=== PATIENT | female | born 1995 | race American Indian/Alaskan Native ===

== ENCOUNTER 2021-04-11 06:15 | Emergency (ER) | payer SELFPAY ==
[2021-04-11 06:47] VITALS: BP 123/77
[2021-04-11 07:45] LABS: Basophils # (Auto) 0.1 K/mm3 (0.0-0.1); Basophils % (Auto) 0.5 % (0.0-1.8); Eosinophils # (Auto) 0.1 K/mm3 (0.0-0.4); Eosinophils % (Auto) 0.8 % (0.0-4.3); Hematocrit 39.5 % (30.3-42.9); Hemoglobin 13.5 gm/dl (10.1-14.3); Lymphocytes # (Auto) 3.6 K/mm3 (1.2-5.4); Lymphocytes % (Auto) 25.5 % (13.4-35.0); Mean Corpuscular HGB Conc 34 % (30-34); Mean Corpuscular Volume 91 fl (79-97); Monocytes # (Auto) 1.1 K/mm3 (0.0-0.8); Monocytes % (Auto) 7.7 % (0.0-7.3); Platelet Count 195 K/mm3 (140-440); Red Blood Count 4.37 M/mm3 (3.65-5.03); Red Cell Distribution Width 13.4 % (13.2-15.2)
[2021-04-11 08:25] LABS: Alanine Aminotransferase 23 units/L (7-56); Albumin 4.2 g/dL (3.9-5); Blood Urea Nitrogen 9 mg/dL (7-17); Calcium 9.7 mg/dL (8.4-10.2); Hemolysis Index 3
[2021-04-11 08:28] LABS: BUN/Creatinine Ratio 15
--- NOTE | 2021-04-11 09:15 | Event Note ---
ED Screening Note Date of service: 04/11/21 Time: 09:13 ED Screening Note: The patient was evaluated in the emergency department for symptoms described in the history of present illness. He/she was evaluated in the context of the global COVID-19 pandemic, which necessitated consideration that the patient might be at risk for infection with the virus that causes COVID-19. Institutional protocols and algorithms that pertain to the evaluation of patients at risk for COVID-19 are in a state of rapid change based on information released by regulatory bodies including the CDC and federal and state organizations. These policies and algorithms were followed during the patient's care in the emergency department. Please note that these policies, procedures and recommendations changed on a rapid basis. 26-year-old -[place] female presents to the emergency room concern for a possible miscarriage. Patient states that she is about 2 months with her last menstrual period of 02/09/2021. Patient states that this morning she woke up and started having abdominal cramping in vaginal bleeding. Patient is 2 para 0 with a history of 1 miscarriage. She denies any past medical history currently takes no medications on a daily basis and denies any trauma. Patient reports that she is followed by [facility] [employer] [facility] Dr. Blanca for it. This initial assessment/diagnostic orders/clinical plan/treatment(s) is/are subject to change based on patients health status, clinical progression and re- assessment by fellow clinical providers in the ED. Further treatment and workup at subsequent clinical providers discretion. Patient/guardian urged not to elope from the ED as their condition may be serious if not clinically assessed and managed. Initial orders include: CBC CMP hCG urinalysis ultrasound with transvaginal has been ordered
[2021-04-11 10:30] LABS: Bilirubin,Urine NEG (Negative); Blood,Urine MOD (Negative); Color,Urine Red (Yellow); Mucus,Urine FEW /HPF; Urobilinogen,Urine < 2.0 mg/dL (<2.0)
--- NOTE | 2021-04-11 10:33 | Ultrasound Report ---
FIRSTTRIMESTER OBSTETRIC ULTRASOUND ULTRASOUND OB TRANSVAGINAL HISTORY: Vaginal bleeding and cramping during . Patient states she passed a couple of clots this morning. COMPARISON: None. TECHNIQUE: Routine transabdominal and transvaginal OB ultrasound performed. FINDINGS: Uterus: Mildly enlarged measuring 10.4 x 5.8 x 7.1 cm. Gestational Sac: Well-defined oval shape and intrauterine in location. Yolk Sac: Normal in appearance. Fetus/Embryo: [place]-rump length of 0.67 cm, corresponding to an estimated gestational age of 6 weeks 4 days. Embryonic/ anatomy is too small for evaluation. Embryonic/ cardiac activity: No heart rate could be detected at this time. Placenta: Too small for evaluation. Amniotic fluid volume: Subjectively appropriate for gestational age. Ovaries: The right ovary is normal in size and appearance with normal blood flow, measuring 4.9 x 2. 3 x 3.3 cm. The left ovary is normal in size and appearance with normal blood flow, measuring 3.8 x 2.6 x 2.6 cm. Additional findings: A small subchorionic hemorrhage is suspected along the inferior border of the ge stational sac measuring 1.8 x 0.5 x 1.7 cm IMPRESSION An intrauterine gestational sac containing a small pole and yolk sac is identified. No convinci ng heart rate could be recorded. [place]-rump length measurements correlate with a 6 week 4 day p regnancy. This is concerning for demise. Close interval follow-up is recommended. Small subchorionic hemorrhage. Signer Name: Moises Kiser Jr, MD Signed: 04/11/2021 10:29 AM Workstation Name: [id number]
--- NOTE | 2021-04-11 11:51 | Emergency Department Report ---
ED HPI - General Chief complaint: Vaginal Bleeding Stated complaint: POSSIBLE MISCARRIAGE Time Seen by Provider: 04/11/21 09:07 Source: patient Mode of arrival: Ambulatory Limitations: No Limitations - History of Present Illness Initial comments: The patient was evaluated in the emergency department for symptoms described in the history of present illness. He/she was evaluated in the context of the global COVID-19 pandemic, which necessitated consideration that the patient might be at risk for infection with the virus that causes COVID-19. Institutional protocols and algorithms that pertain to the evaluation of patients at risk for COVID-19 are in a state of rapid change based on information released by regulatory bodies including the CDC and federal and state organizations. These policies and algorithms [facility]. Please note that these policies, procedures and recommendations changed on a rapid basis. 26-year-old -[place] female presents to the emergency room concern for a possible miscarriage. Patient states that she is about 2 months with her last menstrual period of 02/09/2021. Patient states that this morning she woke up and started having abdominal cramping in vaginal bleeding. Patient is 2 para 0 with a history of 1 miscarriage. She denies any past medical history currently takes no medications on a daily basis and denies any trauma. Patient reports that she is followed by [employer] Dr. Blanca for it. - Related Data Previous Rx's Medication Instructions Recorded Last Taken Type Nitrofurantoin [place]/M-Cryst 100 mg PO Q12HR 7 Days #14 capsule 04/11/21 Unknown Rx [Macrobid CAP] Allergies Allergy/AdvReac Type Severity Reaction Status Date / Time No Known Allergies Allergy Unverified 04/11/21 06:47 ED Review of Systems ROS: Stated complaint: POSSIBLE MISCARRIAGE Other details as noted in HPI ED Past Medical Hx - Past Medical History Previous Medical History?: No - Surgical History Past Surgical History?: Yes Additional Surgical History: D&C. Right Eye - Social History Smoking Status: Never Smoker Substance Use Type: None - Medications Home Medications: Home Medications Medication Instructions Recorded Confirmed Last Taken Type Nitrofurantoin [place]/M-Cryst 100 mg PO Q12HR 7 Days #14 capsule 04/11/21 Unknown Rx [Macrobid CAP] ED Physical Exam - General Limitations: No Limitations General appearance: alert, in no apparent distress - Head Head exam: Present: atraumatic, normocephalic - Eye Eye exam: Present: normal appearance - ENT ENT exam: Present: mucous membranes moist - Neck Neck exam: Present: normal inspection - Respiratory Respiratory exam: Present: normal lung sounds bilaterally. Absent: respiratory distress - Cardiovascular Cardiovascular Exam: Present: regular rate, normal rhythm. Absent: systolic murmur, diastolic murmur, rubs, gallop - GI/Abdominal GI/Abdominal exam: Present: soft, normal bowel sounds - Extremities Exam Extremities exam: Present: normal inspection - Back Exam Back exam: Present: normal inspection - Neurological Exam Neurological exam: Present: alert, oriented X3 - Psychiatric Psychiatric exam: Present: normal affect, normal mood - Skin Skin exam: Present: warm, dry, intact, normal color. Absent: rash ED Course Vital Signs 04/11/21 06:41 Temperature 98.2 F Pulse Rate 93 H Respiratory 20 Rate Blood Pressure 123/77 O2 Sat by Pulse 100 Oximetry ED Medical Decision Making - Lab Data Result diagrams: 04/11/21 06:55 04/11/21 07:44 Laboratory Results - last 24 hr 04/11/21 04/11/21 04/11/21 06:55 06:55 06:55 WBC 14.1 H RBC 4.37 Hgb 13.5 Hct 39.5 MCV 91 MCH 31 MCHC 34 RDW 13.4 Plt Count 195 Lymph % (Auto) 25.5 [place] % (Auto) 7.7 H Eos % (Auto) 0.8 Baso % (Auto) 0.5 Lymph # (Auto) 3.6 [place] # (Auto) 1.1 H Eos # (Auto) 0.1 Baso # (Auto) 0.1 Seg Neutrophils % 65.5 Seg Neutrophils # 9.2 H Sodium Potassium Chloride Carbon Dioxide Anion Gap BUN Creatinine Estimated GFR BUN/Creatinine Ratio Glucose Calcium Total Bilirubin AST ALT Alkaline Phosphatase Total Protein Albumin Albumin/Globulin Ratio HCG, Quant 07112 H Urine Bilirubin Blood Type O POSITIVE 04/11/21 04/11/21 07:44 10:15 WBC RBC Hgb Hct MCV MCH MCHC RDW Plt Count Lymph % (Auto) [place] % (Auto) Eos % (Auto) Baso % (Auto) Lymph # (Auto) [place] # (Auto) Eos # (Auto) Baso # (Auto) Seg Neutrophils % Seg Neutrophils # Sodium 139 Potassium 4.1 Chloride 105.6 Carbon Dioxide 23 Anion Gap 15 BUN 9 Creatinine 0.6 Estimated GFR > 60 BUN/Creatinine Ratio 15 Glucose 83 Calcium 9.7 Total Bilirubin 0.40 AST 17 ALT 23 Alkaline Phosphatase 48 Total Protein 7.5 Albumin 4.2 Albumin/Globulin Ratio 1.3 HCG, Quant Urine Bilirubin Neg Blood Type - Radiology Data Radiology results: report reviewed Study Comments [facility] [address] [place] [address] Ultrasound Report Signed Patient: CARLOTTA LAINEZ MR#: [id number] 93 : 1995 Acct:[id number] Age/Sex: 26 / F ADM Date: 04/11/21 Loc: ED Attending Dr: Ordering Physician: KAMALJIT KENNEDY Date of Service: 04/11/21 Procedure(s): US OB <= 14 weeks fetus Accession Number(s): [id number] cc: KAMALJIT KENNEDY FIRSTTRIMESTER OBSTETRIC ULTRASOUND ULTRASOUND OB TRANSVAGINAL HISTORY: Vaginal bleeding and cramping during . Patient states she passed a couple of clots this morning. COMPARISON: None. TECHNIQUE: Routine transabdominal and transvaginal OB ultrasound performed. FINDINGS: Uterus: Mildly enlarged measuring 10.4 x 5.8 x 7.1 cm. Gestational Sac: Well-defined oval shape and intrauterine in location. Yolk Sac: Normal in appearance. Fetus/Embryo: [place]-rump length of 0.67 cm, corresponding to an estimated gestational age of 6 weeks 4 days. Embryonic/ anatomy is too small for evaluation. Embryonic/ cardiac activity: No heart rate could be detected at this time. Placenta: Too small for evaluation. Amniotic fluid volume: Subjectively appropriate for gestational age. Ovaries: The right ovary is normal in size and appearance with normal blood flow, measuring 4.9 x 2.3 x 3.3 cm. The left ovary is normal in size and appearance with normal blood flow, measuring 3.8 x 2.6 x 2.6 cm. Additional findings: A small subchorionic hemorrhage is suspected along the inferior border of the gestational sac measuring 1.8 x 0.5 x 1.7 cm IMPRESSION An intrauterine gestational sac containing a small pole and yolk sac is identified. No convincing heart rate could be recorded. [place]-rump length measurements correlate with a 6 week 4 day . This is concerning for demise. Close interval follow-up is recommended. Small subchorionic hemorrhage. Signer Name: Moises Kiser Jr, MD Signed: 04/11/2021 10:29 AM Workstation Name: [id number] Transcribed By: ROHAN Dictated By: MOISES KISER JR, MD Electronically Authenticated By: MOISES KISER JR, MD Signed Date/Time: 04/11/21 1029 DD/ 1023 TD/TT: - Medical Decision Making 26-year-old -[place] female presents to the emergency room concern for a possible miscarriage. Patient states that she is about 2 months with her last menstrual period of 02/09/2021. Patient states that this morning she woke up and started having abdominal cramping in vaginal bleeding. Patient is 2 para 0 with a history of 1 miscarriage. She denies any past medical history currently takes no medications on a daily basis and denies any trauma. Patient reports that she is followed by [employer] Dr. Blanca [place] it. hCG 80923 Stable H&H Urinalysis pending Ultrasound; An intrauterine gestational sac containing a small pole and yolk sac is identified. No convincing heart rate could be recorded. [place]-rump length measurements correlate with a 6 week 4 day . This is concerning for demise. Close interval follow-up is recommended. Small subchorionic hemorrhage. Recommend patient to have serial hCGs and a repeat ultrasound in 72 hours. Patient needs to follow-up with her primary [employer]IAN which is Dr. Evangelist Alfaro. - Differential Diagnosis Threatened miscarriage, demise, subchorionic hemorrhage Critical Care Time: Yes (35) Critical care attestation.: If time is entered above; I have spent that time in minutes in the direct care of this critically ill patient, excluding procedure time. ED Disposition Clinical Impression: Threatened miscarriage in early , UTI (urinary tract infection) during Disposition: 01 HOME / SELF CARE / HOMELESS Is pt being admited?: No Does the pt Need Aspirin: No Condition: Stable Instructions: Threatened Miscarriage Additional Instructions: Ultrasound shows you have a intrauterine gestation. Concern for possible demise. Recommend to have a repeat hCG in 72 hours that can be done at your [facility] [facility] as well as having an ultrasound. As we spoke this will determine if the is viable. At this time we do not see cardiac activity. This may be too early in the . That is why we are recommending a repeat ultrasound in 72 hours. Tylenol is the only pain medication you can take at this time. Prescriptions: Nitrofurantoin [place]/M-Cryst [Macrobid CAP] 100 mg PO Q12HR 7 Days #14 capsule Referrals: PRIMARY CARE, [Primary Care Provider] - 3-5 Days Evangelist Alfaro [Other] - 3-5 Days Forms: Work/School Release Form(ED) Time of Disposition: 12:14
[2021-04-11 12:09] LABS: RBC,Urine > 182.0 /HPF (0.0-6.0)
== END 2021-04-11 12:24 | disposition home or self-care (01) ==
LOC: ED 06:15
DX: O20.0 Threatened abortion (principal); O23.40 Unspecified infection of urinary tract in pregnancy, unspecified trimester; Z98.890 Other specified postprocedural states; Z79.899 Other long term (current) drug therapy; Z3A.01 Less than 8 weeks gestation of pregnancy
CPT/HCPCS: 36415; 76801; 76817; 80053; 81001; 84702; 85025; 86900; 86901; 87086